=== PATIENT | male | born 1965 | race Caucasian/White ===

== ENCOUNTER → 2016-10-20 | Outpatient (CLI) | payer BC ==
[~2016-10-20] MED LIST: AUGMENTIN 500 M1 TAB PO; CHERATUSSIN AC480 ML PO; DOXYCYCLINE100 MG PO; PREDNISONE10 MG PO; VICODIN ES 7501 TAB PO
== END | disposition home or self-care (01) ==
LOC: RAD 12:42
DX: J40 Bronchitis, not specified as acute or chronic (principal)

== ENCOUNTER → 2017-06-11 | Outpatient (CLI) | payer BC ==
[~2017-06-11] MED LIST changes: +METOPROLOL TART50 M1 PO; +ZESTORETIC 10-1 EACH PO
--- NOTE | ~2017-06-11 | ST ---
[place], [place] EXERCISE STRESS TEST REPORT NAME: AISLINN KING UNIT #: [id number] ROOM: DOCTOR: ALBERTO GARCIA [facility],[place] BIRTHDATE: [birth year] DOS: 06/11/2017 LEXISCAN WITH SESTAMIBI The patient received Lexiscan 0.4 mg over the 10 seconds. Heart rate is 86. No ischemic changes in EKG. Isotope was injected. No complication. Myocardial perfusion scan to follow. COLETTE DOMINGUEZ MD CM:STRESS:EXERCISE STRESS TEST REPORT [id number] THEODORE DOMINGUEZ MD [facility]
== END | disposition home or self-care (01) ==
LOC: CARD 01:58
DX: I10 Essential (primary) hypertension (principal); E78.5 Hyperlipidemia, unspecified; I25.2 Old myocardial infarction; E66.9 Obesity, unspecified; Z82.49 Family history of ischemic heart disease and other diseases of the circulatory system

== ENCOUNTER → 2017-12-28 | Outpatient (CLI) | payer BC ==
[2017-12-28 11:28] LABS: BUN 15 mg/dl (7-24); CHLORIDE 105 mmol/L (98-107); CHOLESTEROL 161 mg/dL (<200); CREATININE 0.82 mg/dL (0.70-1.30); HDL CHOLESTEROL 48 mg/dl (40-60); LDL CHOLESTEROL 83 mg/dL (9-159); POTASSIUM 3.9 mmol/L (3.5-5.1); SGOT/AST 20 IU/L (3-35); SGPT/ALT 32 U/L (12-78); SODIUM 141 mmol/L (136-145); TRIGLYCERIDES 152 mg/dl (<150); VLDL CHOLESTEROL 30 mg/dL (6-40)
== END | disposition home or self-care (01) ==
LOC: LAB 10:32
PROVIDERS: Internal Medicine Cardiovascular Disease
DX: I10 Essential (primary) hypertension (principal); E78.5 Hyperlipidemia, unspecified

== ENCOUNTER 2018-03-26 09:48 | Emergency (ER) | payer BC ==
[~2018-03-26] VITALS: Ht 180.3 cm; Wt 156.5 kg
[2018-03-26] MEDS ORDERED: NAPROSYN500 MG PO (09:58)
[2018-05-28] MEDS ORDERED: IBU800 MG PO (14:14)
[2018-05-28] MEDS ORDERED: ASPIRIN CHEWABL81 MG PO (14:15)
[2018-05-28] MEDS ORDERED: DICLOFENAC SOD75 MG PO (14:15)
== END 2018-03-26 11:25 | disposition home or self-care (01) ==
LOC: ED 09:48
DX: S83.91XA Sprain of unspecified site of right knee, initial encounter (principal); R03.0 Elevated blood-pressure reading, without diagnosis of hypertension; Z79.899 Other long term (current) drug therapy; W01.0XXA Fall on same level from slipping, tripping and stumbling without subsequent striking against object, initial encounter; Y93.89 Activity, other specified; Y92.812 Truck as the place of occurrence of the external cause; Y99.8 Other external cause status

== ENCOUNTER → 2018-06-03 | Day surgery (SDC) | payer BC ==
[2018-05-28 14:13] VITALS: BP 153/90
[2018-05-28 15:57] LABS: BUN 19 mg/dl (7-24); CHLORIDE 106 mmol/L (98-107); CREATININE 0.78 mg/dL (0.70-1.30); POTASSIUM 4.1 mmol/L (3.5-5.1); SODIUM 139 mmol/L (136-145)
[~2018-06-03] VITALS: Ht 177.8 cm; Wt 165.6 kg
[~2018-06-03] MED LIST changes: +ASPIRIN CHEWABL81 MG PO; +DICLOFENAC SOD75 MG PO; +IBU800 MG PO; +NAPROSYN500 MG PO; +NORCO 5-325 TA1 EACH PO
--- NOTE | ~2018-06-03 | O ---
[place], [place] OPERATIVE NOTE [id number] UNIT #: [id number] ROOM: DOCTOR: ALFIE LOPEZ DO BIRTHDATE: [birth year] DOS: 06/03/2018 TIME: 3:55 p.m. PREOPERATIVE DIAGNOSIS: Osteoarthritis, right knee with lateral meniscal tear. POSTOPERATIVE DIAGNOSIS: Osteoarthritis, right knee with lateral meniscal tear. PROCEDURE: Right knee arthroscopy with subtotal lateral meniscectomy and patellofemoral chondroplasty. ANESTHESIA: General. SURGEON: Alfie Lopez DO COMPLICATIONS: None. TOURNIQUET: 35 minutes at 300 mm. INDICATIONS FOR PROCEDURE: This is a 52-year-old male seen in the office regarding right knee pain. Please see details of outpatient operative note regarding additional patient's clinical history, findings and indications for procedure. The patient has an unstable locked knee with marked instability and has advanced osteoarthritis. He is not a surgical candidate for knee replacement surgery. We had therefore discussed arthroscopic surgery for purposes of immobilization and hopefully, resolving the instability and locking of the patient's knee. Benefits and complications discussed as detailed. Informed consent obtained. DESCRIPTION OF PROCEDURE: With the patient having been identified and the operative knee marked, he was taken to the operative suite, transferred to the position supine, provided a general anesthetic by the Department of Anesthesia. Upon induction and according to anesthesia, he did jabier down as well as had some blood pressure dropped, but that was treated and the patient was stable. Anesthesia did okay for continuation of the procedure. A well-padded right thigh tourniquet placed. Right leg was positioned in a padded arthroscopic leg galvin. The right leg and knee were then prepped and draped in the usual sterile fashion. Esmarch bandage was used to exsanguinate the limb and tourniquet elevated to 300 mmHg. A #11 blade was used to make a small stab incision over the standard inferolateral portal site. Blunt trocar used to introduce the arthroscopic cannula and sheath. Diagnostic arthroscopy was performed. Suprapatellar pouch showed synovitic changes. Medial and lateral gutters were clear. Underside of the patella showed a large grade 3/4 unstable chondral flap central. The medial compartment was entered. Fraying of the peripheral meniscus was noted. Extensive grade 4 changes noted without chondral flapping of the medial femoral condyle or medial tibial plateau. ACL was intact within the notch. Lateral compartment could not be entered secondary to a large incarcerated lateral meniscal tear, displaced anterior. A medial portal site was created with a #11 blade, opened up with the blunt trocar. A motorized shaver was then performed and a subtotal lateral meniscectomy was performed [place], [place] OPERATIVE NOTE NAME: CHRISTINEAISLINN Solomon UNIT #: [id number] ROOM: DOCTOR: ALFIE LOPEZ DO BIRTHDATE: [birth year] removing the entirety of the anterior meniscus and moderate portion of the posterior meniscus that was torn back to the junction of the middle and posterior third. Arthritic grade 2 and 3 changes noted within the lateral compartment of the knee. The arthroscopic shaver was removed. A blunt probe inserted and found to have a stable meniscal border. The motorized shaver was placed in the suprapatellar pouch and chondroplasty performed on the underside of the patella removing the unstable chondral flap, checked with a probe, found to be adequately treated with stable borders. The knee was copiously irrigated. Arthroscope and arthroscopic instruments were removed. Portal sites were closed with interrupted nylon suture. The patient upon reversal of his anesthesia and again according to anesthesia, again jabier down as well as some blood pressure dropped, but quickly came back up with treatment, remained stable. The patient was transferred to his hospital cart and to recovery in stable and satisfactory condition. ALFIE LOPEZ DO CM:OPRECORD:OPERATIVE NOTE [id number] ALFIE LOPEZ DO 06/03/18 1807 interface
[2018-06-03 13:56] VITALS: BP 144/68
[2018-06-03 15:44] VITALS: BP 114/45
[2018-06-03 16:01] VITALS: BP 112/51
[2018-06-03 16:16] VITALS: BP 119/61
[2018-06-03 16:31] VITALS: BP 105/53
[2018-06-03 16:44] VITALS: BP 103/57
== END | disposition home or self-care (01) ==
LOC: SDC 05-28 14:00
PROVIDERS: Orthopaedic Surgery
DX: M17.11 Unilateral primary osteoarthritis, right knee (principal); S83.251A Bucket-handle tear of lateral meniscus, current injury, right knee, initial encounter; I10 Essential (primary) hypertension; J45.909 Unspecified asthma, uncomplicated; E78.00 Pure hypercholesterolemia, unspecified; Z98.890 Other specified postprocedural states; Z79.899 Other long term (current) drug therapy; X58.XXXA Exposure to other specified factors, initial encounter; Y93.89 Activity, other specified; Y92.89 Other specified places as the place of occurrence of the external cause; Y99.8 Other external cause status

== ENCOUNTER → 2018-10-13 | Outpatient (CLI) | payer BC ==
[2018-10-13 07:03] LABS: BUN 13 mg/dl (7-24); CHLORIDE 102 mmol/L (98-107); CHOLESTEROL 202 mg/dL (<200); CREATININE 0.99 mg/dL (0.70-1.30); HDL CHOLESTEROL 45 mg/dl (40-60); LDL CHOLESTEROL 119 mg/dL (9-159); POTASSIUM 4.2 mmol/L (3.5-5.1); SGOT/AST 22 IU/L (3-35); SGPT/ALT 35 U/L (12-78); SODIUM 135 mmol/L (136-145); TRIGLYCERIDES 192 mg/dl (<150); VLDL CHOLESTEROL 38 mg/dL (6-40)
== END | disposition home or self-care (01) ==
LOC: LAB 05:58
PROVIDERS: Internal Medicine Cardiovascular Disease
DX: I10 Essential (primary) hypertension (principal)

== ENCOUNTER → 2019-07-22 | Outpatient (CLI) | payer BC ==
[2019-07-22 10:21] LABS: BUN 14 mg/dl (7-24); CHLORIDE 102 mmol/L (98-107); CHOLESTEROL 194 mg/dL (<200); CREATININE 0.95 mg/dL (0.70-1.30); HDL CHOLESTEROL 42 mg/dl (40-60); LDL CHOLESTEROL 126 mg/dL (9-159); POTASSIUM 4.2 mmol/L (3.5-5.1); SGOT/AST 24 IU/L (3-35); SGPT/ALT 38 U/L (12-78); SODIUM 135 mmol/L (136-145); TRIGLYCERIDES 130 mg/dl (<150); VLDL CHOLESTEROL 26 mg/dL (6-40)
== END | disposition home or self-care (01) ==
LOC: LAB 09:03
PROVIDERS: Internal Medicine Cardiovascular Disease
DX: I10 Essential (primary) hypertension (principal); E78.5 Hyperlipidemia, unspecified; E66.9 Obesity, unspecified

== ENCOUNTER 2019-08-22 09:18 | Emergency (ER) | payer BC ==
[~2019-08-22] VITALS: Ht 180.3 cm; Wt 158.8 kg
== END 2019-08-22 11:26 | disposition home or self-care (01) ==
LOC: ED 09:18
DX: S80.11XA Contusion of right lower leg, initial encounter (principal); S80.811A Abrasion, right lower leg, initial encounter; Z79.899 Other long term (current) drug therapy; Z79.82 Long term (current) use of aspirin; W19.XXXA Unspecified fall, initial encounter; Y93.89 Activity, other specified; Y92.89 Other specified places as the place of occurrence of the external cause; Y99.8 Other external cause status

== ENCOUNTER 2020-02-02 12:40 | Emergency (ER) | payer BC ==
[~2020-02-02] VITALS: Ht 180.3 cm; Wt 165.6 kg
[2020-02-02 15:00] LABS: BASO % 0.6 % (0.0-1.0); EOS # 0.2 10*3/uL (0.0-0.4); EOS % 3.5 % (1.0-4.0); HEMATOCRIT 42.9 % (42.0-52.0); LYMPH # 1.6 10*3/uL (1.3-4.4); LYMPH % 23.8 % (27.0-41.0); MEAN CELL VOLUME 97.5 fl (80.0-94.0); MEAN CORPUSCULAR HGB 33.2 pg (27.0-31.0); MEAN PLATELET VOLUME 8.7 fl (9.6-12.3); MONO # 0.6 10*3/uL (0.1-1.0); MONO % 8.6 % (3.0-9.0); NEUT # 4.4 10*3/uL (2.3-7.9); NEUT % 63.2 % (47.0-73.0); PLATELET COUNT AUTOMATED 178 10*3/uL (130-400); RED CELL DISTRI WIDTH 11.9 % (0-14.5); WHITE BLOOD COUNT 6.9 10*3/uL (4.8-10.8)
[2020-02-02 15:13] LABS: ALBUMIN 3.6 gm/dl (3.1-4.5); ALKALINE PHOSPHATASE 74 U/L (45-117); BUN 11 mg/dl (7-24); CHLORIDE 105 mmol/L (98-107); CREATININE 0.82 mg/dL (0.70-1.30); POTASSIUM 3.7 mmol/L (3.5-5.1); SGOT/AST 16 IU/L (3-35); SGPT/ALT 37 U/L (12-78); SODIUM 139 mmol/L (136-145); TOTAL PROTEIN 7.6 gm/dL (6.4-8.2)
[2020-02-02] MEDS ORDERED: CIPRO500 MG PO (17:03)
[2020-02-02] MEDS ORDERED: FLAGYL500 MG PO (17:03)
[2020-02-02 19:36] LABS: BILIRUBIN Negative (Negative); BLOOD Negative (Negative); CLARITY Clear (Clear); COLOR Yellow (Yellow); GLUCOSE Negative (Negative); KETONE Negative (Negative); LEUKO ESTERASE Negative (Negative); NITRITE Negative (Negative); SPECIFIC GRAVITY >= 1.030 (1.001-1.030); UROBILINOGEN 0.2 E.U./dl (0.0-1.0)
[2020-02-02 20:02] LABS: EPITHELIAL CELLS 0-2; RBC 0-2 rbc/hpf (0-2); WBC 0-2 wbc/hpf (0-5)
[2020-02-02 20:03] LABS: BACTERIA TRACE
== END 2020-02-02 17:36 | disposition home or self-care (01) ==
LOC: ED 12:40
PROVIDERS: Registered Nurse
DX: K57.92 Diverticulitis of intestine, part unspecified, without perforation or abscess without bleeding (principal); Z79.899 Other long term (current) drug therapy

== ENCOUNTER → 2021-09-13 | Outpatient (CLI) | payer BC ==
[~2021-09-13] MED LIST changes: +CIPRO500 MG PO; +FLAGYL500 MG PO
[2021-09-13 08:35] LABS: ALKALINE PHOSPHATASE 63 U/L (45-117); BUN 18 mg/dl (7-24); CHLORIDE 100 mmol/L (98-107); CREATININE 0.94 mg/dL (0.70-1.30); POTASSIUM 4.6 mmol/L (3.5-5.1); SGOT/AST 29 IU/L (3-35); SGPT/ALT 41 U/L (12-78); SODIUM 137 mmol/L (136-145); TOTAL PROTEIN 7.7 gm/dL (6.4-8.2)
== END | disposition home or self-care (01) ==
LOC: LAB 07:47
PROVIDERS: ATTEND Orthopaedic Surgery
DX: M25.561 Pain in right knee (principal); Z79.1 Long term (current) use of non-steroidal anti-inflammatories (NSAID)

== ENCOUNTER 2021-12-09 09:24 | Emergency (ER) | payer BC ==
[~2021-12-09] VITALS: Ht 180.3 cm; Wt 156.5 kg
[2021-12-09] MEDS ORDERED: PREPARATION H C26 GM T (09:52)
== END 2021-12-09 11:40 | disposition home or self-care (01) ==
LOC: ED 09:24
DX: K64.5 Perianal venous thrombosis (principal); Z79.82 Long term (current) use of aspirin; Z79.899 Other long term (current) drug therapy

== ENCOUNTER → 2022-06-05 | Outpatient (CLI) | payer BC ==
[~2022-06-05] MED LIST changes: +PREPARATION H C26 GM T
[2022-06-05 11:16] LABS: BUN 14 mg/dl (9-23); CHLORIDE 101 mmol/L (98-107); CHOLESTEROL 157 mg/dL (<200); LDL CHOLESTEROL 90 mg/dL (9-159); POTASSIUM 4.3 mmol/L (3.4-5.1); SGPT/ALT 24 U/L (10-49); TRIGLYCERIDES 115 mg/dl (<150)
== END | disposition home or self-care (01) ==
LOC: LAB 08:45
PROVIDERS: ATTEND Physician Assistant
DX: I10 Essential (primary) hypertension (principal)

== ENCOUNTER 2022-10-20 07:31 | Emergency (ER) | payer BC ==
[~2022-10-20] VITALS: Ht 175.2 cm; Wt 163.3 kg
[2022-10-20 07:59] LABS: BASO # 0.1 10*3/uL (0.0-0.1); BASO % 0.6 % (0.0-1.0); EOS # 0.3 10*3/uL (0.0-0.4); HEMATOCRIT 47.4 % (42.0-52.0); LYMPH # 1.2 10*3/uL (1.3-4.4); LYMPH % 14.5 % (27.0-41.0); MEAN CORPUSCULAR HGB 34.1 pg (27.0-31.0); MEAN CORPUSCULAR HGB CONC 33.1 g/dl (33.0-37.0); MEAN PLATELET VOLUME 8.1 fl (9.6-12.3); MONO # 0.4 10*3/uL (0.1-1.0); MONO % 4.4 % (3.0-9.0); NEUT # 6.4 10*3/uL (2.3-7.9); NEUT % 77.3 % (47.0-73.0); PLATELET COUNT AUTOMATED 186 10*3/uL (130-400); RED CELL DISTRI WIDTH 12.9 % (0-14.5); WHITE BLOOD COUNT 8.3 10*3/uL (4.8-10.8)
[2022-10-20 08:37] LABS: ALKALINE PHOSPHATASE 77 U/L (46-116); BUN 10 mg/dl (9-23); CHLORIDE 104 mmol/L (98-107); POTASSIUM 4.3 mmol/L (3.4-5.1); SGPT/ALT 18 U/L (10-49); TOTAL PROTEIN 7.5 gm/dL (6.0-8.0)
[2022-10-20] MEDS ORDERED: PREDNISONE50 MG PO (08:41)
[2022-10-20] MEDS ORDERED: BENZONATATE100 M1 PO (08:41)
== END 2022-10-20 08:49 | disposition home or self-care (01) ==
LOC: ED 07:31
PROVIDERS: Internal Medicine
DX: R05.9 Cough, unspecified (principal); R07.81 Pleurodynia; I10 Essential (primary) hypertension; Z98.890 Other specified postprocedural states

== ENCOUNTER → 2024-01-12 | Outpatient (CLI) | payer BC ==
[~2024-01-12] MED LIST changes: +BENZONATATE100 M1 PO; +PREDNISONE50 MG PO
== END | disposition home or self-care (01) ==
LOC: LAB 17:12
PROVIDERS: ATTEND Chiropractor Orthopedic
DX: S39.012A Strain of muscle, fascia and tendon of lower back, initial encounter (principal); M51.87 Other intervertebral disc disorders, lumbosacral region; M47.817 Spondylosis without myelopathy or radiculopathy, lumbosacral region; M48.07 Spinal stenosis, lumbosacral region; X58.XXXA Exposure to other specified factors, initial encounter; Y93.89 Activity, other specified; Y92.89 Other specified places as the place of occurrence of the external cause; Y99.8 Other external cause status

== ENCOUNTER 2024-11-07 07:00 | Emergency (ER) | payer BC ==
[~2024-11-07] VITALS: Ht 180.3 cm; Wt 165.6 kg
[2024-11-07] MEDS ORDERED: SODIUM CHLORIDE 0.9% 500 ML IV ONE (08:50)
[2024-11-07 09:10] LABS: BASO # 0.0 10*3/uL (0.0-0.1); BASO % 0.2 % (0.0-1.0); EOS # 0.0 10*3/uL (0.0-0.4); EOS % 0.2 % (1.0-4.0); MEAN CELL VOLUME 100.2 fl (80.0-94.0); MEAN CORPUSCULAR HGB 32.8 pg (27.0-31.0); MEAN PLATELET VOLUME 8.2 fl (9.6-12.3); MONO # 0.5 10*3/uL (0.1-1.0); MONO % 5.1 % (3.0-9.0); NEUT # 7.4 10*3/uL (2.3-7.9); NEUT % 84.0 % (47.0-73.0); NUCLEATED RED BLOOD CELL 0.0 % (0.0-0.0); NUCLEATED RED BLOOD CELL 0.0 10*3/uL (0.0-0.0); PLATELET COUNT AUTOMATED 168 10*3/uL (130-400); RED CELL DISTRI WIDTH 12.4 % (0-14.5)
[2024-11-07 09:27] LABS: BUN 13 mg/dl (9-23)
[2024-11-07 10:37] LABS: BILIRUBIN Negative (Negative); BLOOD 2+ (Negative); CLARITY Clear (Clear); COLOR Yellow (Yellow); KETONE Negative (Negative); LEUKO ESTERASE Negative (Negative); NITRITE Negative (Negative); PH 5.5 (4.5-8.0); SPECIFIC GRAVITY 1.015 (1.001-1.030); UROBILINOGEN 1.0 E.U./dl (0.0-1.0)
[2024-11-07 10:50] LABS: BACTERIA 1+; RBC 21-30 rbc/hpf (0-2)
[2024-11-07] MEDS ORDERED: MIRALAX POWDER17 G1 PO (12:07)
[2024-11-07] MEDS ORDERED: COLACE100 MG PO (12:07)
== END 2024-11-07 12:34 | disposition home or self-care (01) ==
LOC: ED 07:00
PROVIDERS: Emergency Medicine
DX: S39.012A Strain of muscle, fascia and tendon of lower back, initial encounter (principal); K59.00 Constipation, unspecified; R10.9 Unspecified abdominal pain; R31.9 Hematuria, unspecified; X58.XXXA Exposure to other specified factors, initial encounter; Y93.89 Activity, other specified; Y92.89 Other specified places as the place of occurrence of the external cause; Y99.8 Other external cause status

== ENCOUNTER → 2025-03-10 | Outpatient (CLI) | payer BC ==
[~2025-03-10] MED LIST changes: +COLACE100 MG PO; +MIRALAX POWDER17 G1 PO
[2025-03-10 08:42] LABS: BASO # 0.0 10*3/uL (0.0-0.1); BASO % 0.7 % (0.0-1.0); EOS # 0.2 10*3/uL (0.0-0.4); EOS % 4.4 % (1.0-4.0); MEAN CELL VOLUME 100.7 fl (80.0-94.0); MEAN CORPUSCULAR HGB 33.3 pg (27.0-31.0); MEAN PLATELET VOLUME 8.0 fl (9.6-12.3); MONO # 0.4 10*3/uL (0.1-1.0); MONO % 7.3 % (3.0-9.0); NEUT # 3.3 10*3/uL (2.3-7.9); NEUT % 59.7 % (47.0-73.0); NUCLEATED RED BLOOD CELL 0.0 % (0.0-0.0); NUCLEATED RED BLOOD CELL 0.0 10*3/uL (0.0-0.0); PLATELET COUNT AUTOMATED 144 10*3/uL (130-400); RED CELL DISTRI WIDTH 12.4 % (0-14.5)
[2025-03-10 09:04] LABS: BUN 15 mg/dl (9-23); LDL CHOLESTEROL 92 mg/dL (9-159); SGPT/ALT 22 U/L (5-49)
== END | disposition home or self-care (01) ==
LOC: LAB 08:13
PROVIDERS: ATTEND Registered Nurse
DX: I10 Essential (primary) hypertension (principal); E78.2 Mixed hyperlipidemia